=== PATIENT | female | born 1995 | race Two or more races ===

== ENCOUNTER 2021-02-17 23:49 | Emergency (ER) | payer SELFPAY ==
[~2021-02-17] VITALS: Ht 162.6 cm; Wt 59.0 kg
[2021-02-18] VITALS: BP 158/100
== END 2021-02-18 00:35 | disposition left against medical advice (07) ==
LOC: ER 23:49
DX: F41.9 Anxiety disorder, unspecified (principal); Z53.21 Procedure and treatment not carried out due to patient leaving prior to being seen by health care provider